=== PATIENT | female | born 1980 | race Caucasian/White ===

== ENCOUNTER 2018-05-19 06:08 | Emergency (ER) | payer BC, SELFPAY ==
[2018-05-19] VITALS (7 sets, daily range): BP systolic 103–114; BP diastolic 62–81; PULSE 88–183; RESP 13–23; TEMP 36.6–36.7; O2SAT 97–99
--- NOTE | 2018-05-19 06:28 | W.ED.GENAD ---
Discharge Plan Disposition Patient Disposition: HOME Condition: Stable Discharge Details Chief Complaint: Palpitatns Clinical Impression: A-fib Primary Care Provider: Patt Carrillo ED Provider: Sam Kennedy Home Meds and New Rx's Prescriptions: No Action No Known Home Meds RF: 0 Discharge Instructions Instructions: Atrial Fibrillation (ED) Additional Instructions: You were in atrial fibrillation when you arrived here. You converted to a normal rhythm with IV fluids Follow up with your primary care provider in 1-2 weeks. Discuss if you should be on remote computer terminal operator blood thinners given your episode of atrial fibrillation if you feel your heart rate is high, have chest pain or difficulty breathing return to the emergency department for reevaluation Medical Decision Making <Jared Ferguson MD - Last Filed: 05/19/18 07:31> 37-year-old female states that she had a fairly abrupt onset of palpitations last night after dinner while at rest. Associated with sensation of being unable to catch her breath. She became lightheaded and nauseated at home, attempted to go to work and then came to the hospital for evaluation. She has not had chest pain or syncope. She denies having sensation like this in the past. No recent travel or prolonged immobilization. She arrives with a temperature of 36, pulse in the 160s, blood pressure 114/81, 98% sat on room air. Differential diagnosis includes thyroid disease, dehydration, myocardial infarction, pulmonary embolism, tachydysrhythmia. Patient placed on a traffic monitor specialist, IV access established, EKG obtained which reveals rapid atrial fibrillation. 2L fluid bolus & 2 g of magnesium ordered, referred for laboratory testing. Patient signed out to Dr Kennedy at change of shift, please see his note. ECG Data Interpretation: Afib, rate 160's, QRS is narrow, no st elevation, non diagnostic ST depression inferior <Sam Kennedy MD - Last Filed: 05/19/18 09:06> Lab Data Lab results reviewed: Yes I reviewed the patient's lab results. ECG Data Attestation: I personally reviewed and interpreted this ECG (s) as follows: Prior ECG tracings: not available for review Interpretation: 1st ekg shows afib at rate of 150, qtc 448, normal axis 2nd ekg showssinus rhythm, rate of 92, qtc 468, normal axis HPI <Jared Ferguson MD - Last Filed: 05/19/18 07:31> General Mode of arrival: ambulatory. Date/Time Provider Initiated Documentation: 05/19/18 06:14. Limitations to Documentation: no limitations. Information obtained by: patient. History of Present Illness 37 year old F presents to the emergency department with the chief complaint of Palpitations and lightheaded, described as moderate, Quality is described as constant, and is localized to the chest. Patient reports no radiation. Patient started experiencing this day(s) and it has been constant. No relieving factors improve symptom(s), No exacerbating factors reported . Patient notes shortness of breath. Patient did receive the following treatments prior to arrival, none Related Data Home Medications Medication Instructions Recorded Confirmed Unknown [No Known Home Meds] 05/19/18 05/19/18 Allergies Allergy/AdvReac Type Severity Reaction Status Date / Time No Known Allergies Allergy Unverified 05/19/18 06:47 General Stated Complaint: Palpitatns DALTON: 2 Review of Systems <Jared Ferguson MD - Last Filed: 05/19/18 07:31> Review of Systems 8 systems reviewed and otherwise neg PFSH <Jared Ferguson MD - Last Filed: 05/19/18 07:31> Social History Smoking/Tobacco Use Status: Former Tobacco Use Exam <Jared Ferguson MD - Last Filed: 05/19/18 07:31> Narrative Exam Narrative: GEN: awake, alert, oriented 3. Pleasant, well groomed, interactive. HEAD: Normocephalic, atraumatic ENT: Mucous membranes moist, oropharynx unremarkable, External ear exam unremarkable EYES: PERRL, EOMI NECK: Full ROM, no THEODORE, no menigismus CHEST/RESP: Nontender, clear to auscultation bilateral, no wheeze/rhonchi/rales CARDIOVASCULAR: Tachycardic, irregularly irregular, no murmur, rub collin. 2+ Rad pulse bilateral ABDOMEN: Soft, nontender, no mass. +Bowel sounds EXT: Full ROM, no edema, no rash Neuro: Grossly normal neurologic exam, conversant, interactive. Psych: Speech fluent, thoughts congruent, affect normal Course <Jared Ferguson MD - Last Filed: 05/19/18 07:31> Vital Signs Temperature 36.6 C 05/19/18 06:21 Pulse 183 H 05/19/18 06:21 Respiratory Rate 13 05/19/18 06:21 Blood Pressure 114/81 05/19/18 06:21 Pulse Oximetry 98 05/19/18 06:21 Temperature 36.6 C 05/19/18 06:21 Temperature Source Temporal Artery Scan 05/19/18 06:21 Pulse 183 H 05/19/18 06:21 Respiratory Rate 13 05/19/18 06:21 Blood Pressure 114/81 05/19/18 06:21 Blood Pressure Position Sitting 05/19/18 06:21 Pulse Oximetry 98 05/19/18 06:21 Oxygen Delivery Method Room Air 05/19/18 06:21 Oxygen Flow Rate 0 05/19/18 06:21 Pain Level 0 05/19/18 06:21 Sign Out <Jared Ferguson MD - Last Filed: 05/19/18 07:31> Sign Out Data: Sign Out Comment: re-evaluate after labs/fluids/mag Last updated by Jared Ferguson MD at 05/19/18 07:39 Post-Handoff Eval: Pt converted to sinus rhythm shortly after getting mag and fluids started. Is HD stable and feels much better and has no symptoms now that she is in sinus rhythm. Her labs show evidence of dehydration otherwise no acute findings. Given she is asymptomatic and is in sinus rhythm, I feel she is safe for d/c. I advised f/u with pcp within 2 weeks and discuss blood thinners, and return precautions given
--- NOTE | 2018-05-19 06:31 | ED.GENADUL_ITS ---
Discharge Plan Disposition Patient Disposition: HOME Condition: Stable Discharge Details Chief Complaint: Palpitatns Clinical Impression: A-fib Primary Care Provider: Patt Carrillo ED Provider: Sam Kennedy Home Meds and New Rx's Prescriptions: No Action No Known Home Meds RF: 0 Discharge Instructions Instructions: Atrial Fibrillation (ED) Additional Instructions: You were in atrial fibrillation when you arrived here. You converted to a normal rhythm with IV fluids Follow up with your primary care provider in 1-2 weeks. Discuss if you should be on intermediate frame tender blood thinners given your episode of atrial fibrillation if you feel your heart rate is high, have chest pain or difficulty breathing return to the emergency department for reevaluation Medical Decision Making <Jared Ferguson MD - Last Filed: 05/19/18 07:31> 37-year-old female states that she had a fairly abrupt onset of palpitations last night after dinner while at rest. Associated with sensation of being unable to catch her breath. She became lightheaded and nauseated at home, attempted to go to work and then came to the hospital for evaluation. She has not had chest pain or syncope. She denies having sensation like this in the past. No recent travel or prolonged immobilization. She arrives with a temperature of 36, pulse in the 160s, blood pressure 114/81, 98% sat on room air. Differential diagnosis includes thyroid disease, dehydration, myocardial infarction, pulmonary embolism, tachydysrhythmia. Patient placed on a cardiac cath lab radiology technologist, IV access established, EKG obtained which reveals rapid atrial fibrillation. 2L fluid bolus & 2 g of magnesium ordered, referred for laboratory testing. Patient signed out to Dr Kennedy at change of shift, please see his note. ECG Data Interpretation: Afib, rate 160's, QRS is narrow, no st elevation, non diagnostic ST depression inferior <aSm Kennedy MD - Last Filed: 05/19/18 09:06> Lab Data Lab results reviewed: Yes I reviewed the patient's lab results. ECG Data Attestation: I personally reviewed and interpreted this ECG (s) as follows: Prior ECG tracings: not available for review Interpretation: 1st ekg shows afib at rate of 150, qtc 448, normal axis 2nd ekg showssinus rhythm, rate of 92, qtc 468, normal axis HPI <Jared Ferguson MD - Last Filed: 05/19/18 07:31> General Mode of arrival: ambulatory . Date/Time Provider Initiated Documentation: 05/19/18 06:14 . Limitations to Documentation: no limitations . Information obtained by: patient . History of Present Illness 37 year old F presents to the emergency department with the chief complaint of Palpitations and lightheaded, described as moderate, Quality is described as constant, and is localized to the chest. Patient reports no radiation. Patient started experiencing this day(s) and it has been constant. No relieving factors improve symptom(s), No exacerbating factors reported . Patient notes shortness of breath. Patient did receive the following treatments prior to arrival, none Related Data Home Medications Medication Instructions Recorded Confirmed Unknown [No Known Home Meds] 05/19/18 05/19/18 Allergies Allergy/AdvReac Type Severity Reaction Status Date / Time No Known Allergies Allergy Unverified 05/19/18 06:47 General Stated Complaint: Palpitatns DALTON: 2 Review of Systems <Jared Ferguson MD - Last Filed: 05/19/18 07:31> Review of Systems 8 systems reviewed and otherwise neg PFSH <Jared Ferguson MD - Last Filed: 05/19/18 07:31> Social History Smoking/Tobacco Use Status: Former Tobacco Use Exam <Jared Ferguson MD - Last Filed: 05/19/18 07:31> Narrative Exam Narrative: GEN: awake, alert, oriented 3. Pleasant, well groomed, interactive. HEAD: Normocephalic, atraumatic ENT: Mucous membranes moist, oropharynx unremarkable, External ear exam unremarkable EYES: PERRL, EOMI NECK: Full ROM, no THEODORE, no menigismus CHEST/RESP: Nontender, clear to auscultation bilateral, no wheeze/rhonchi/rales CARDIOVASCULAR: Tachycardic, irregularly irregular, no murmur, rub collin. 2+ Rad pulse bilateral ABDOMEN: Soft, nontender, no mass. +Bowel sounds EXT: Full ROM, no edema, no rash Neuro: Grossly normal neurologic exam, conversant, interactive. Psych: Speech fluent, thoughts congruent, affect normal Course <Jared Ferguson MD - Last Filed: 05/19/18 07:31> Vital Signs Temperature 36.6 C 05/19/18 06:21 Pulse 183 H 05/19/18 06:21 Respiratory Rate 13 05/19/18 06:21 Blood Pressure 114/81 05/19/18 06:21 Pulse Oximetry 98 05/19/18 06:21 Temperature 36.6 C 05/19/18 06:21 Temperature Source Temporal Artery Scan 05/19/18 06:21 Pulse 183 H 05/19/18 06:21 Respiratory Rate 13 05/19/18 06:21 Blood Pressure 114/81 05/19/18 06:21 Blood Pressure Position Sitting 05/19/18 06:21 Pulse Oximetry 98 05/19/18 06:21 Oxygen Delivery Method Room Air 05/19/18 06:21 Oxygen Flow Rate 0 05/19/18 06:21 Pain Level 0 05/19/18 06:21 Sign Out <Jared Ferguson MD - Last Filed: 05/19/18 07:31> Sign Out Data: Sign Out Comment: re-evaluate after labs/fluids/mag Last updated by Jared Ferguson MD at 05/19/18 07:39 Post-Handoff Eval: Pt converted to sinus rhythm shortly after getting mag and fluids started. Is HD stable and feels much better and has no symptoms now that she is in sinus rhythm. Her labs show evidence of dehydration otherwise no acute findings. Given she is asymptomatic and is in sinus rhythm, I feel she is safe for d/c. I advised f/u with pcp within 2 weeks and discuss blood thinners, and return precautions given
--- NOTE | 2018-05-19 07:44 | NUR.NOTE ---
pt has been stuck 6 times by shift commander and 4 by day shift without getting an iv and lab came an stuck pt for blood waiting on line for pt Nursing Note:
[2018-05-19 08:00] LABS: ALT 19 U/L (12-78); AST 15 U/L (15-37); Albumin 3.7 g/dL (3.4-5.0); Alkaline Phosphatase 60 U/L (46-116); BUN 16 mg/dL (7-18); Bilirubin, Total 0.6 mg/dL (0.2-1.0); CREATININE 1.09 mg/dL (0.55-1.02); Chloride 106 mmol/L (98-107); Estimated GFR 56.48 (mL/min/1.73m2); Glucose 93 mg/dL (70-100); Magnesium 2.2 mg/dL (1.8-2.4); Potassium 3.6 mmol/L (3.5-5.1); Sodium 143 mmol/L (136-145); Total Protein 7.4 g/dL (6.4-8.2)
[2018-05-19 08:02] LABS: Troponin I < 0.02 ng/mL (0.00-0.06)
[2018-05-19] MEDS: MAGNESIUM SULFATE 2 GM/50 ML BAG IVPB (08:03)
[2018-05-19] MEDS: Normal Saline 1,000 ML 1000 ML IV (08:04)
[2018-05-19] MEDS: Normal Saline Flush 10 ML SYR IVP (08:05)
[2018-05-19 08:31] LABS: PTT Activated 22.4 sec (21.0-31.4); Prothrombin Time 10.1 sec (9.3-11.0)
[2018-05-19 08:38] LABS: Bilirubin Negative (Negative); Blood Trace-intact (Negative); Clarity Clear; Glucose Negative (Negative); Ketones Negative (Negative); Leukocyte Esterase Negative (Negative); Nitrite Negative (Negative); Urobilinogen 0.2 EU/dL (Up TO 0.2)
[2018-05-19 08:50] LABS: Bacteria Rare HPF (Negative); C & S Indicated? No; Casts Negative LPF (Negative); Crystals Negative HPF (Negative); Epithelial Cells Negative HPF (Negative); Mucus Negative (Negative); Other Cells Negative (Negative); RBC 0-2 (0-2); WBC Negative HPF (0-5)
[2018-05-19 08:51] LABS: D-Dimer 233 ng/mlFEU (<500)
[2018-05-19 09:15] LABS: Abs Immature Grans 0.01 k/cumm (0.0-0.09); Absolute Basophil Count 0.03 k/cumm (0.0-0.2); Absolute Eosinophil Count 0.05 k/cumm (0.0-0.7); Absolute Lymphocyte Count 1.73 k/cumm (1.2-3.4); Absolute Monocyte Count 0.59 k/cumm (0.11-0.7); Absolute Neutrophil Count 5.82 k/cumm (1.2-6.7); Basophils % 0.4; Eosinophils % 0.6; HCT 48.7 % (36.0-46.0); HGB 16.2 g/dL (12.0-15.5); Immature Grans % 0.1; Mean Corp. HGB Concentration 33.3 g/dL (32.0-36.0); Mean Corpuscular Hemoglobin 25.1 pg (27.0-33.0); Mean Corpuscular Volume 75.5 fL (80-95); Mean Platelet Volume 11.7 fL (8.0-11.0); Monocytes % 7.2; Neutrophils % 70.7; Platelet Count 179 x1000/uL (130-400); RBC 6.45 m/cumm (4.00-5.20); RBC Distribution Width 13.9 % (11.7-14.6); White Blood Cell Count 8.23 k/cumm (4.4-10.8)
--- NOTE | 2018-05-19 09:50 | NUR.NOTE ---
pt stated that she is painfree and PMS X 4Nursing Note:
== END 2018-05-19 09:50 | disposition home or self-care (01) ==
PROVIDERS: Emergency Medicine; Emergency Provider Emergency Medicine; PCP Nurse Practitioner Family
DX: I48.91 Unspecified atrial fibrillation (principal); Z87.891 Personal history of nicotine dependence
CPT/HCPCS: 36415; 80053; 93005; 96361; 96365; 99284; 81003; 81015; 83735; 84443; 84484; 85025; 85379; 85610; 85730; 93010

== ENCOUNTER 2018-06-02 02:10 | Outpatient (CLI) | payer BC, SELFPAY | END 2018-06-02 02:30 | PROVIDERS: PCP Nurse Practitioner Family; Visit Provider Nurse Practitioner Family | DX: I48.0 Paroxysmal atrial fibrillation (principal) ==

== ENCOUNTER 2018-06-12 01:54 | Outpatient (CLI) | payer BC, SELFPAY | END 2018-06-12 02:14 | PROVIDERS: PCP Nurse Practitioner Family; Visit Provider Nurse Practitioner Family | DX: I48.0 Paroxysmal atrial fibrillation (principal); I49.3 Ventricular premature depolarization; R00.1 Bradycardia, unspecified | CPT/HCPCS: 93225 ==

== ENCOUNTER 2018-06-18 11:23 | Outpatient (CLI) | payer BC, SELFPAY ==
--- NOTE | 2018-06-22 12:00 | HOLTER_ITS ---
HOLTER MONITOR DATE OF DICTATION June 22, 2018 INTERPRETATION Baseline rhythm sinus. Rare single PAC. No atrial fibrillation or SVT. Occasionally single PVC, No VT. Nocturnal heart rates as low as 50-55 beats per minute, sinus bradycardia. SYMPTOMS Skip noted once during sinus arrhythmia 80 beats per minute. Skip noted once during sinus rhythm 85 beats per minute. Flutter noted twice during sinus rhythm single PVC, 71, 77 beats per minute. Average heart rate 85 beats per minute. Sam Collins M.D. PHIL/madiha T - 06/22/2018
== END 2018-06-18 11:43 ==
PROVIDERS: PCP Nurse Practitioner Family; Visit Provider Nurse Practitioner Family
DX: R00.1 Bradycardia, unspecified (principal); I49.3 Ventricular premature depolarization; I48.0 Paroxysmal atrial fibrillation
CPT/HCPCS: 93226

== ENCOUNTER 2018-07-21 09:09 | Outpatient (REF) | payer BC, SELFPAY ==
[2018-07-21 19:24] LABS: Cholesterol 185 mg/dL (50-200); Glucose 93 mg/dL (70-100); HDL Cholesterol 56 mg/dL (40-60); LDL CHOLESTEROL 116 mg/dL (<100); Triglyceride 46 mg/dL (30-150)
== END 2018-07-21 09:29 ==
LOC: NCHCN 09:09
PROVIDERS: PCP Nurse Practitioner Family; Visit Provider Nurse Practitioner Family
DX: Z00.00 Encounter for general adult medical examination without abnormal findings (principal); I48.0 Paroxysmal atrial fibrillation; F32.9 Major depressive disorder, single episode, unspecified; F51.04 Psychophysiologic insomnia
CPT/HCPCS: 80061; 82947; 83721

== ENCOUNTER 2019-01-22 06:36 | Emergency (ER) | payer BC, SELFPAY ==
[2019-01-22] VITALS (11 sets, daily range): BP systolic 95–109; BP diastolic 57–78; PULSE 78–118; RESP 13–33; TEMP 36.6–37.1; O2SAT 93–100
--- NOTE | 2019-01-22 06:58 | ED.GENADUL_ITS ---
Discharge Plan Disposition Patient Disposition: HOME Condition: Good Discharge Details Chief Complaint: Palpitatns Clinical Impression: Heart palpitations Primary Care Provider: Patt Carrillo ED Provider: Robert Lorenzo Home Meds and New Rx's Prescriptions: No Action zolpidem [Ambien] 10 mg Tablet 10 mg PO PRN PRNRF: 0 Discharge Instructions Instructions: Palpitations (ED) Additional Instructions: You have had palpitations, however at this time we see no signs of atrial fibrillation. We will continue to monitor your heart over the next 48 hours with a Holter monitor. You may require prolonged monitoring if the Holter does not show any significant abnormalities. We will be scheduling cardiology follow-up for you, you will get a call with the appointment. Please follow-up with your primary care provider at the appointment that we have scheduled for you on Friday the at 10 AM with [facility]. Please drink plenty fluids throughout the day. Avoid any alcohol or caffeine. If you notice any worsening of your symptoms, or any new symptoms such as vomiting, diarrhea, fever, chills, shortness of breath, chest pain, palpitations, numbness, weakness, or fainting , please return immediately to the emergency department for reevaluation. Please follow up with your primary care provider as soon as possible for reassessment and reevaluation. As always, it was a pleasure participating in your medical care today. Stand Alone Forms: Work Release Discharge Data Discharge Date/Time-TO BE ENTERED AT DEPARTURE: 01/22/19 09:51 Medical Decision Making <José Orozco MD - Last Filed: 01/25/19 23:09> Patient is in sinus rhythm here. Heart rate ranging from 90s up into the 1 teens. Blood pressure little soft but she reports normal blood pressure is systolic 90s to 100s. She still feels lightheaded but is no longer feeling short of breath and is not having palpitations like she did. We will give a liter of fluid and leave her on the monitor for now. We will check laboratory studies including TSH. Doubt PE as a source of symptoms. She has no pleuritic pain. She has no calf pain or tenderness. She has no risk factors for PE. Will obtain d-dimer. Patient laboratory studies are significant for low bicarb and anion gap. Again patient denies illness. She is not fasting. She is not on a keto diet. No great explanation for abnormality. Potassium and magnesium are fine. Calcium just a little low. TSH is normal. D-dimer still pending. Will hang a second bag of fluid. Case discussed with my colleague, Dr. Lorenzo who will take over care. Will likely repeat her BMP after the second liter of fluid. She did not receive an echo after her first episode of documented A. fib. Should probably obtain that at some point as outpatient to evaluate valvular structure. Consider repeat Holter. Medical Records Medical records reviewed: Yes I reviewed the patient's medical records. Lab Data Lab results reviewed: Yes I reviewed the patient's lab results. ECG Data Attestation: I personally reviewed and interpreted this ECG (s) as follows: Interpretation: Sinus rhythm with 1 PAC. Normal intervals and axis. Normal ST segments. <Robert Lorenzo, DO - Last Filed: 01/22/19 09:41> Case was signed out to be my my colleague Dr. Orozco pending d-dimer and reassessment. On reassessment patient has been doing very well. Aside for the initial episode of very mild tachycardia 118 on her first assessment, she has been in normal sinus with a rate of 70s during the prolonged observation stay greater than 2 hours. She has no symptoms of palpitations or chest pain at this time whatsoever. Calcium was given to the patient to correct her very minimal hypo-Benjy C. Osiris. Anion gap is resolved after fluids. D-dimer test was negative. Patient continues to feel very well. 48 hr Holter monitor has been applied. We have scheduled an outpatient follow-up appointment with her PCP on Friday the of this month at 10 AM. This is required to get the prior off for the echocardiogram. We will schedule cardiology follow-up. Currently she continues to show no evidence of A. fib, and so at this time I do not see an indication for anticoagulation as we have no proof of current atrial fibrillation as a cause of her symptomatology at this point. We have had a long discussion regarding critical findings for which to immediately return, the importance of follow-up. I have extensively reviewed the treatment plan and discharge instructions with the patient. I have addressed all patient concerns at this time. The patient was made aware of what symptoms to monitor for that would warrant a return to the emergency department. Discussed the plan with the patient, they demonstrate verbal understanding and agreement with our assessment and plan at this time. HPI <José Orozco MD - Last Filed: 01/25/19 23:09> General Mode of arrival: ambulatory . Date/Time Provider Initiated Documentation: 01/22/19 06:47 . Limitations to Documentation: no limitations . Information obtained by: patient, RN notes reviewed and old records reviewed . HPI Narrative: Patient presents to ED this morning with complaints of palpitations, shortness of breath, lightheadedness all night. She had previous similar event and on arrival to ED was found to be in rapid A. fib. She converted in the department with IV fluids. She subsequently has had a Holter monitor and has followed up with primary care. No A. fib was seen on Holter monitor. Patient has not been started on anything for A. fib. She states typically she may have short periods of palpitations. Last night she has pretty much felt like she is been in A. fib with palpitations, shortness of breath and lightheadedness all night. She reports heart rates as high as 150 at home. Here she feels the palpitations and shortness of breath are better. She still feels lightheaded. She denies being ill. There has been no fevers or chills. There is no cough. There is no chest pain or pressure. There is no leg pain or leg swelling. She denies drug use. Related Data Home Medications Medication Instructions Recorded Confirmed zolpidem [Ambien] 10 mg PO PRN PRN 01/22/19 01/22/19 Allergies Allergy/AdvReac Type Severity Reaction Status Date / Time No Known Allergies Allergy Unverified 01/22/19 06:43 General Stated Complaint: Palpitatns DALTON: 2 Review of Systems <José Orozco MD - Last Filed: 01/25/19 23:09> Review of Systems Narrative: 02/15 Review of Systems completed and is negative except as stated above in HPI (Systems reviewed: Const, Eyes, ENT, Resp, CV, GI, , MSK, Skin, Neuro) PFSH <José Orozco MD - Last Filed: 01/25/19 23:09> Medical History Paroxysmal atrial fibrillation (Acute) Social History Smoking/Tobacco Use Status: Former Tobacco Use Drug use: Never Substance use type: does not use Do you feel safe at home: Yes Do you feel safe in your relationship?: Yes Exam <José Orozco MD - Last Filed: 01/25/19 23:09> Narrative Exam Narrative: Vitals: Afebrile. A little tachycardic but vitals otherwise normal. Room air pulse oximetry normal at 100%. Const: WDWN female in NAD. HEENT: NC/AT. Normal facial exam. Eyes: Normal conjunctiva and sclera. Neck: Supple. Trachea midline. No thyromegaly. Lungs: Normal respiratory effort. Lungs are clear. Cor: RRR without murmur/gallop. Good radial pulses. GI: Soft. NT/ND. No guarding or rebound. Neuro: A+O x 3. CN grossly in tact. Good strength and no focal deficit. Ext: No C/C/E. No calf tenderness. Skin: Warm and dry without rash. Course <José Orozco MD - Last Filed: 01/25/19 23:09> Vital Signs Vital signs: Vital Signs Temperature 97.9 F 01/22/19 06:38 Pulse 118 H 01/22/19 06:38 Respiratory Rate 21 01/22/19 06:38 Blood Pressure 109/64 01/22/19 06:38 Pulse Oximetry 100 01/22/19 06:38 Temperature 97.9 F 01/22/19 06:38 Temperature Source Skin 01/22/19 06:38 Pulse 118 H 01/22/19 06:38 Respiratory Rate 21 01/22/19 06:38 Respiratory Effort Non-Labored 01/22/19 06:48 Blood Pressure 109/64 01/22/19 06:38 Blood Pressure Position Sitting 01/22/19 06:38 Pulse Oximetry 100 01/22/19 06:38 Oxygen Delivery Method Room Air 01/22/19 06:38 Oxygen Flow Rate 0 01/22/19 06:38 Pain Level 0 01/22/19 06:45 Sign Out <José Orozco MD - Last Filed: 01/25/19 23:09> Sign Out Data: Sign Out Comment: follow up on pending labs; re-eval. Last updated by José Orozco MD at 01/22/19 07:59
[2019-01-22] MEDS: Normal Saline 1,000 ML 1000 ML IV ×2 (07:00→07:49)
[2019-01-22 07:20] LABS: Abs Immature Grans 0.02 k/cumm (0.0-0.09); Absolute Basophil Count 0.04 k/cumm (0.0-0.2); Absolute Lymphocyte Count 1.83 k/cumm (1.2-3.4); Absolute Monocyte Count 0.42 k/cumm (0.11-0.7); Absolute Neutrophil Count 3.72 k/cumm (1.2-6.7); Basophils % 0.7; Eosinophils % 1.6; HCT 44.4 % (36.0-46.0); Immature Grans % 0.3; Lymphocytes % 29.9; Mean Corp. HGB Concentration 33.8 g/dL (32.0-36.0); Mean Corpuscular Hemoglobin 25.3 pg (27.0-33.0); Monocytes % 6.9; Neutrophils % 60.6; Platelet Count 184 x1000/uL (130-400); RBC 5.92 m/cumm (4.00-5.20); RBC Distribution Width 13.9 % (11.7-14.6); White Blood Cell Count 6.13 k/cumm (4.4-10.8)
[2019-01-22 07:37] LABS: Anion Gap 14.2 mmol/L (3-11); BUN 13 mg/dL (7-18); CO2 19.8 mmol/L (21.0-32.0); CREATININE 0.92 mg/dL (0.55-1.02); Calcium 8.4 mg/dL (8.5-10.1); Chloride 106 mmol/L (98-107); Glucose 128 mg/dL (70-100); Magnesium 2.1 mg/dL (1.8-2.4); Potassium 3.5 mmol/L (3.5-5.1); Sodium 140 mmol/L (136-145); TSH (W/Ref FT4) 3.03 uIU/mL (0.36-3.74)
[2019-01-22 07:49] LABS: HCG Qual (Serum) Negative
[2019-01-22 08:07] LABS: D-Dimer 243 ng/mlFEU (<500)
--- NOTE | 2019-01-22 09:00 | NUR.NOTE ---
Nursing Note: Referral faxed to [facility]- cardiology and appointment made to [facility] for Prior Auth Echo.
[2019-01-22 09:15] LABS: ALT 9 U/L (14-59); AST 10 U/L (15-37); Albumin 2.8 g/dL (3.4-5.0); Alkaline Phosphatase 49 U/L (46-116); BUN 13 mg/dL (7-18); Bilirubin, Total 0.2 mg/dL (0.2-1.0); CREATININE 0.95 mg/dL (0.55-1.02); Calcium 8.1 mg/dL (8.5-10.1); Chloride 111 mmol/L (98-107); Glucose 103 mg/dL (70-100); Potassium 3.7 mmol/L (3.5-5.1); Sodium 141 mmol/L (136-145); Total Protein 5.8 g/dL (6.4-8.2)
== END 2019-01-22 09:51 | disposition home or self-care (01) ==
PROVIDERS: Emergency Medicine; Emergency Provider Student in an Organized Health Care Education/Training Program; PCP Nurse Practitioner Family
DX: R00.2 Palpitations (principal); I48.0 Paroxysmal atrial fibrillation
CPT/HCPCS: 36415; 80048; 80053; 93005; 96361; 96365; 99284; 83735; 84443; 84703; 85025; 85379; 93010; 93225; J0610

== ENCOUNTER 2019-01-25 15:40 | Outpatient (CLI) | payer BC, SELFPAY ==
--- NOTE | 2019-01-26 12:21 | HOLTER_ITS ---
DATE OF DICTATION: January 26, 2019 STUDY INDICATION: Palpitations. REQUESTING PROVIDER: Not available. FINDINGS: The patient was monitored for 2 days. Baseline sinus rhythm. Average heart rate 82 bpm, range 55 to 129 bpm. Rare ectopy. 0.2% PVC's, no VT. 0.2% PAC's. One 3-beat atrial run, maximum heart rate 168 bpm. No pauses greater than 3 seconds. No high-degree heart block. No patient events. FINAL INTERPRETATION: Minor, asymptomatic arrhythmias.
== END 2019-01-25 16:00 ==
PROVIDERS: PCP Nurse Practitioner Family; Visit Provider Nurse Practitioner Family
DX: R00.2 Palpitations (principal); I49.3 Ventricular premature depolarization; I49.1 Atrial premature depolarization
CPT/HCPCS: 93226

== ENCOUNTER 2019-04-05 00:53 | Outpatient (CLI) | payer BC, SELFPAY ==
--- NOTE | 2019-04-05 14:02 | DI.US_ITS ---
APPROVED REPORT EXAM: Comprehensive 2D, Doppler, and color-flow Echocardiogram Patient Location: Out-Patient Manager Residential: Kaela Lobo [facility] ([place]) Rhythm: NSR Indications: paroxysmal atrial fibrillation i48.0 Conclusion Left Ventricle : The left ventricle is normal size. There is normal left ventricular wall thickness. The left ventricular systolic function is normal. The left ventricular ejection fraction is within th e normal range. There is normal LV segmental wall motion. The left ventricular diastolic function is normal. LVEF is estimated to be 55-60%. Right Ventricle : The right ventricle is normal size. The right ventricular systolic function is norm al. Atria : The left atrium size is normal. The right atrium size is normal. Aortic Valve : Aortic valve is probably trileaflet, with mild sclerosis. Trivial to mild aortic regur gitation. There is no aortic valvular stenosis. Mitral Valve : The mitral is very mildly thickened. Trivial to mild mitral regurgitation. No evidence of mitral valve stenosis. Tricuspid Valve : Tricuspid valve is not well visualized. Trivial to mild tricuspid regurgitation. Great Vessels : The IVC is dilated but collapses >50% with inspiration. The estimated RVSP is 30-38 mmHg. There is no prior echocardiogram available for comparison. Wall motion Left Ventricle The left ventricle is normal size. The left ventricular systolic function is normal. The left ventric ular ejection fraction is within the normal range. There is normal left ventricular wall thickness. T here is normal LV segmental wall motion. The left ventricular diastolic function is normal. LVEF is e stimated to be 55-60%. Right Ventricle The right ventricle is normal size. The right ventricular systolic function is normal. Atria The left atrium size is normal. The right atrium size is normal. Aortic Valve Aortic valve is probably trileaflet, with mild sclerosis. There is no aortic valvular stenosis. Trivi al to mild aortic regurgitation. Mitral Valve The mitral is very mildly thickened. No evidence of mitral valve stenosis. Trivial to mild mitral reg urgitation. Tricuspid Valve Tricuspid valve is not well visualized. Trivial to mild tricuspid regurgitation. Great Vessels The aortic root is normal in size. The IVC is dilated but collapses >50% with inspiration. The estima kris RVSP is 30-38 mmHg. Pericardium There is no pericardial effusion. 2D Dimensions IVSd 0.85 cm F: 0.6-1.0 LV EDV A2C 58.40 mL PWd 0.75 cm F: 0.6 - 1.0 LV EDV A4C 84.00 mL LVDd 5.05 cm F: 3.8 - 5.2 LA Volume Index A2C 17.99 mL/m2 LVDs 3.70 cm F: 2.2 - 3.5 LA Volume Index A4C 15.08 mL/m2 Aortic Root 3.15 cm F: 2.7 - 3.3 LA Volume Index Biplane 16.85 mL/m2 RA Area A4C 10.36 cm2 LA Area A4C 13.48 cm2 LVOT 2.00 cm (M/F) 1.5-2.5 LA Area A2C 15.07 cm2 LVEF (Teich) 52.54 % EF AP4 57.26 % LVEF (Mendiola's) 58.69 % F: 54 - 74 EF AP2 61.47 % LV Volume 51.19 mL F: 46 - 106 EF BP 58.69 % LV Volume Index 23.16 mL/m2 F: 29 - 61 FS 27.10 % LV Diastology E/A Ratio 1.1 MED E' 0.10 (>0.07 m/s) LV E/e MED 9.25 (<14) LAT E' 0.18 (>0.1 m/s) LV E/e LAT 5.15 (<14) Aortic Valve LVOT Area 3.24 cm2 LVOT Peak Juan Antonio. 1.30 m/s LVOT Mean Juan Antonio. 1.01 m/s LVOT Peak Gr. 6.90 mmHg CODY Vmax Index 0.92 cm2/m2 LVOT Mean Gr. 4.50 mmHg LVOT VTI 0.25 m CODY Mean Juan Antonio. Index 0.91 cm2/m2 AoV Peak Juan Antonio. 2.09 (0.5-1.3 m/s) AoV Mean Juan Antonio. 1.62 m/s AO Peak GR. 17.40 mmHg AO Mean GR. 11.10 (<5 mmHg) VTI Ratio 0.56 CODY (VTI) 1.87 (2.5-4.5 cm2) CODY (VTI) Index 0.84 cm/m2 Mitral Valve MV E Max Juan Antonio. 0.95 (0.4-1.3 m/s) MV A Velocity 0.90 (0.4-1.3 m/s) E/A Ratio 1.03 MV Decel. Time 178.05 (160-240 msec) MV PHT 51.64 msec MVA PHT 4.25 cm2 Pulmonary Valve PV Peak Velocity 0.95 (0.5-1.5 m/s) Tricuspid Valve TR P. Velocity 2.74 m/s TV Regurg Vmax 2.74 m/s RAP Estimate 8.00 mmHg RVSP 38.00 mmHg TR P. Gradient 29.95 mmHg
== END 2019-04-05 01:13 ==
PROVIDERS: PCP Nurse Practitioner Family; Visit Provider Nurse Practitioner Family
DX: I48.0 Paroxysmal atrial fibrillation (principal); I34.8 Other nonrheumatic mitral valve disorders; R00.2 Palpitations
CPT/HCPCS: 93306

== ENCOUNTER 2019-05-17 08:54 | Outpatient (CLI) | payer BC, SELFPAY | END 2019-05-17 09:14 | PROVIDERS: PCP Nurse Practitioner Family; Visit Provider Internal Medicine Cardiovascular Disease | DX: I48.0 Paroxysmal atrial fibrillation (principal); R00.2 Palpitations | CPT/HCPCS: 93005; 93010 ==

== ENCOUNTER 2019-11-29 15:47 | Outpatient (REF) | payer BC, SELFPAY ==
[2019-12-02 12:59] LABS: SARS-CoV-2 RNA Undetected (Undetected); SARS-CoV-2 Specimen Source Nasopharynx
== END 2019-11-29 16:07 ==
LOC: NCHCN 15:47
PROVIDERS: PCP Nurse Practitioner Family; Visit Provider Nurse Practitioner Family
DX: Z11.59 Encounter for screening for other viral diseases (principal)
CPT/HCPCS: U0003

== ENCOUNTER 2020-03-09 09:42 | Emergency (ER) | payer BC, SELFPAY ==
[2020-03-09] VITALS (40 sets, daily range): BP systolic 109–125; BP diastolic 63–91; PULSE 65–99; RESP 9–30; TEMP 36.5; O2SAT 97–100
--- NOTE | 2020-03-09 09:30 | RT.EKG_ITS ---
APPROVED REPORT Exam: Resting ECG Patient Location: E HR:80 bpm ECG Measurements Heart Rate 80 AXIS NH 139 P 33 QRSd 96 QRS 90 QT 364 T 33 QTc 421 Conclusion Sinus rhythm...normal P axis, V-rate 60- 99
--- NOTE | 2020-03-09 09:45 | DI.CT_ITS ---
EXAM: CT CHEST PE CTA CLINICAL HISTORY: chest pain since 5 am. TECHNIQUE: Imaging Protocol: Axial CT angiography was performed with multi-slice acquisition and mu lti-planar and/or 3D reconstructions. CONTRAST MATERIAL: Intravenous: Omnipaque 350 Contrast volume:100 mL COMPARISON: No exams were available for comparison FINDINGS: Pulmonary Arteries: No evidence of filling defect to suggest pulmonary emboli. Tracheobronchial tree: Patent where visualized. Mediastinum and Nichol: No dominant adenopathy or fluid collection. Pulmonary parenchyma: No focal consolidation or mass. Atelectasis is present. No architectural dist ortion. Pleura: No effusion or pneumothorax. Heart: The heart is not dilated. No coronary artery calcifications are seen. No pericardial effusion. Aorta: Thoracic aorta non-dilated. No dissection. Upper abdomen: Unremarkable. Bones: Normal. Soft tissues: Unremarkable. IMPRESSION: No evidence of pulmonary embolism, thoracic aortic dissection or aneurysm. Findings were discussed with the emergency department on the date of the examination. RADIATION DOSE DELIVERED: 453.07mGy.cm Total DLP DATA REPOSITORY: All CT scans at this facility are submitted to the National Radiology Data Registry (NRDR) Dose Index Registry (DIR) with the [employer] (ACR). RADIATION OPTIMIZATION: All CT scans at this facility use at least one of these dose optimization te chniques: automated exposure control; mA and/or kV adjustment per patient size (includes targeted exa ms where dose is matched to clinical indication); or iterative reconstruction.
[2020-03-09 10:15] LABS: Abs Immature Grans 0.02 10^3/uL (0.0-0.06); Absolute Basophil Count 0.05 10^3/uL (0.0-0.2); Absolute Eosinophil Count 0.13 10^3/uL (0.0-0.7); Absolute Lymphocyte Count 2.03 10^3/uL (1.2-3.4); Absolute Monocyte Count 0.45 10^3/uL (0.1-0.8); Absolute Neutrophil Count 5.15 10^3/uL (1.2-6.7); Basophils % 0.6; Eosinophils % 1.7; HCT 44.4 % (36.0-46.0); HGB 14.3 g/dL (11.2-15.7); Immature Grans % 0.3; Lymphocytes % 25.9; MCH 25.4 pg (27.0-33.0); MCHC 32.2 % (32.0-36.0); MCV 78.7 fL (80-95); MPV 11.3 fL (8.0-11.0); Monocytes % 5.7; Neutrophils % 65.8; Nucleated RBC 0 %; Platelet Count 195 10^3/uL (130-400); RBC 5.64 10^6/uL (3.93-5.22); RDW 13.2 % (11.7-14.6); RDW-SD 37.5 fL; WBC 7.83 10^3/uL (4.4-10.8)
[2020-03-09] MEDS: LORazepam 2 MG/ML VIAL 0.5 MG IVP (10:22)
[2020-03-09 10:32] LABS: INR 1.1 (0.9-1.1); PTT Activated 22.5 sec (21.0-27.5); Prothrombin Time 10.9 sec (9.3-11.0)
[2020-03-09 10:34] LABS: ALT 15 U/L (14-59); AST 22 U/L (15-37); Alkaline Phosphatase 50 U/L (46-116); Anion Gap 11.4 mmol/L (3-11); BUN 10 mg/dL (7-18); Bilirubin, Total 0.6 mg/dL (0.2-1.0); CO2 25.6 mmol/L (21.0-32.0); Calcium 9.1 mg/dL (8.5-10.1); Chloride 104 mmol/L (98-107); Glucose 87 mg/dL (74-106); Magnesium 2.2 mg/dL (1.8-2.4); Potassium 3.9 mmol/L (3.5-5.1); Sodium 141 mmol/L (136-145); Total Protein 7.6 g/dL (6.4-8.2)
[2020-03-09 10:41] LABS: Troponin I < 0.05 ng/mL (<0.06)
[2020-03-09 10:42] LABS: TSH (W/Ref FT4) 3.08 uIU/mL (0.36-3.74)
[2020-03-09] MEDS: Omnipaque 350 MG/ML 100 ML BTL IJ (11:45)
[2020-03-09] MEDS: Normal Saline Flush 10 ML SYR IVP (11:46)
[2020-03-09] MEDS: Normal Saline - Diluent 50 ML VIAL IV (11:46)
--- NOTE | 2020-03-09 11:57 | NUR.NOTE ---
pt awake and alert. back from ct. chest pain free at this time. :
[2020-03-09] MEDS: diazePAM 5 MG TAB PO (12:44)
--- NOTE | 2020-03-09 13:00 | ED.GENADUL_ITS ---
Discharge Plan Disposition Patient Disposition: HOME Condition: Stable Discharge Details Clinical Impression: Paroxysmal atrial fibrillation, Chest discomfort, Anxiety Primary Care Provider: Patt Carrillo ED Provider: Humberto Muñoz Home Meds and New Rx's Prescriptions: Continued metoprolol tartrate 25 mg tablet 12.5 mg PO BID Qty: 90 RF: 5 zolpidem [Ambien] 10 mg Tablet 10 mg PO PRN PRNRF: 0 Discharge Instructions Instructions: A-fib (Atrial Fibrillation) (ED), Anxiety (ED) Additional Instructions: Please follow-up with your primary care physician and your sterilisation technician. Call today to schedule timely follow-up. Return to the emergency department immediately for any worsening or new concerning symptoms. Stand Alone Forms: Work Release Referrals: Mao Adkins MD [ CONSULTING PHYSICIAN] - Patt Carrillo NP [Primary Care Provider] - Discharge Data Discharge Date/Time-TO BE ENTERED AT DEPARTURE: 03/09/20 14:35 Medical Decision Making 1300??39-year-old female with history of paroxysmal atrial fibrillation which she experiences intermittently, here with palpitations and chest discomfort that started around 5 AM and has persisted. Patient is hemodynamically stable. Lungs are clear to auscultation and she has no respiratory distress. Patient is quite anxious. I interpreted residential monitor in the room and patient in sinus rhythm. Screening ECG was reviewed and interpreted by me: Please see report, nondiagnostic, sinus rhythm 80 bpm. I think ACS is unlikely given no significant risk factors. ECG nondiagnostic. I will check troponin and delta troponin out of an abundance of caution. Considered pulmonary embolism. CT of the chest was reviewed and interpreted by Dr. Irwin, radiology who notes negative with no acute or notable chronic findings. Patient was given Ativan 0.5 mg IV and reassessed and notes significant improvement in her anxiety and discomfort. Suspect anxiety as etiology. I will give her a longer acting oral benzodiazepine, continue to monitor and plan on repeating troponin and ECG. 1420 --patient reassessed and symptoms resolved. Repeat troponin negative. Repeat ECG nondiagnostic. Plan for discharge with outpatient follow-up with her sterilisation technician for her atrial fibrillation and PCP for her anxiety. Disposition decision was made weighing the risks and benefits of hospitalization versus outpatient treatment, the risk for further decompensation, and the patient's wishes. The patient was stable and requested discharge. Prior to discharge, my usual and customary return precautions were reviewed with the patient - this included follow-up instructions and reason to return to the emergency department if condition worsens, does not improve as expected, or other new concerns arise. HPI General Mode of arrival: ambulatory . Date/Time Provider Initiated Documentation: 03/09/20 09:52 . Limitations to Documentation: no limitations . Information obtained by: patient . HPI Narrative: 39-year-old female presents with chief complaint of chest discomfort. Patient notes chest discomfort started this morning around 5 AM at work. Discomfort feels like a constant pressure over her sternum that is worse when she is moving around. Patient notes associated intermittent palpitations. She does have a history of atrial fibrillation and has intermittent brief episodes of palpitations. She has been taking metoprolol as prescribed. She has associated sensation of feeling like her breathing is heavy. No associated leg pain or swelling. No associated cough or fever. Patient does note dizziness and also significant anxiety. She has significant life stressors both at work and home. She does feel safe at home and denies abuse. Patient denies history of hypertension, hyperlipidemia, diabetes, smoking or family history of heart disease. Related Data Home Medications Medication Instructions Recorded Confirmed zolpidem [Ambien] 10 mg PO PRN PRN 01/22/19 03/09/20 metoprolol tartrate 25 mg tablet 12.5 mg PO BID #90 tab 05/17/19 03/09/20 Previous Rx's Medication Instructions Recorded metoprolol tartrate 25 mg tablet 12.5 mg PO BID #90 tab 05/17/19 Allergies Allergy/AdvReac Type Severity Reaction Status Date / Time No Known Allergies Allergy Unverified 03/09/20 09:51 General Stated Complaint: Chest Pain DALTON: 2 Review of Systems All systems reviewed & are unremarkable except as noted in HPI and below Constitutional Constitutional: Denies fever(s) Cardiovascular Cardiovascular: Reports as per HPI Respiratory Respiratory: Reports as per HPI Psychiatric Psychiatric: Reports anxiety [facility] Medical History (Updated 03/09/20 @ 14:22 by Humberto Muñoz MD) Paroxysmal atrial fibrillation Family History Father Diabetes Social History Smoking/Tobacco Use Status: Former Tobacco Use Quit Date: 05/05/08 Tobacco: How many years used: 10 Smoking risk assessment performed?: Yes Alcohol Intake: current Alcohol Intake frequency: a few times a month Alcohol type: beer, wine and hard liquor Drug use: Occasionally Substance use type: marijuana What type of physical activity do you participate in: none Do you feel safe at home: Yes Do you feel safe in your relationship?: Yes Exam Const General: cooperative and well developed Orientation: alert and awake HENMT Mouth: moist mucous membranes Eyes Conjunctivae: normal conjunctivae Sclera: normal sclerae Neck Neck: trachea midline and supple Resp Auscultation: clear to auscultation bilaterally, no rales, no rhonchi and no wheezes Cardio Jugular venous pressure: no JVD Rate: regular rate and not tachycardic Rhythm: regular rhythm Heart Sounds: S1 normal, S2 normal, no click, no gallops, no murmurs and no rubs GI Palpation: soft, not firm, no guarding, no masses, not rigid and nontender Skin General skin exam: no rashes or lesions noted Neuro General: patient alert, patient awake, patient oriented x3 and tone normal Extrem General: no calf tenderness and no edema Psych Appearance: grossly normal Mental Status: mental status grossly normal Mood: anxious mood Affect: anxious affect Attitude: cooperative Thought Content: normal Insight: insight good Judgment: judgment good Course Vital Signs Vital signs: Vital Signs Temperature 36.5 C 03/09/20 09:46 Pulse 92 H 03/09/20 09:46 Respiratory Rate 25 H 03/09/20 09:46 Blood Pressure 124/83 03/09/20 09:46 Pulse Oximetry 100 03/09/20 09:46 Temperature 36.5 C 03/09/20 09:46 Temperature Source Skin 03/09/20 09:46 Pulse 82 03/09/20 11:30 Pulse 66 03/09/20 11:55 Respiratory Rate 17 03/09/20 11:55 Respiratory Effort Non-Labored 03/09/20 10:07 Respiratory Depth Normal 03/09/20 10:07 Respiratory Pattern Normal 03/09/20 10:07 Blood Pressure 121/91 H 03/09/20 11:30 Blood Pressure Mean 98 03/09/20 11:30 Blood Pressure Position Supine 03/09/20 09:46 Pulse Oximetry 99 03/09/20 11:55 Pain Level 2 03/09/20 09:46 Lab/Test Results Lab/Test Results: Laboratory Tests Range/Units 03/09/20 03/09/20 03/09/20 09:50 09:50 09:50 WBC (4.4-10.8) 10^3/uL 7.83 RBC (3.93-5.22) 10^6/uL 5.64 H Hgb (11.2-15.7) g/dL 14.3 Hct (36.0-46.0) % 44.4 MCV (80-95) fL 78.7 L MCH (27.0-33.0) pg 25.4 L MCHC (32.0-36.0) % 32.2 RDW (11.7-14.6) % 13.2 Plt Count (130-400) 10^3/uL 195 MPV (8.0-11.0) fL 11.3 H Immature Gran % 0.3 Neutrophils % 65.8 Lymphocytes % 25.9 Monocytes % 5.7 Eosinophils % 1.7 Basophils % 0.6 Nucleated RBC % % 0 Absolute Neutrophils (1.2-6.7) 10^3/uL 5.15 Absolute Lymphocytes (1.2-3.4) 10^3/uL 2.03 Absolute Monocytes (0.1-0.8) 10^3/uL 0.45 Absolute Eosinophils (0.0-0.7) 10^3/uL 0.13 Absolute Basophils (0.0-0.2) 10^3/uL 0.05 PT (9.3-11.0) sec 10.9 INR (0.9-1.1) 1.1 APTT (21.0-27.5) sec 22.5 Sodium (136-145) mmol/L 141 Potassium (3.5-5.1) mmol/L 3.9 Chloride (98-107) mmol/L 104 Carbon Dioxide (21.0-32.0) mmol/L 25.6 Anion Gap (3-11) mmol/L 11.4 H BUN (7-18) mg/dL 10 Creatinine (0.55-1.02) mg/dL 1.10 H Estimated GFR/1.73 m2 (mL/min/1.73m2) 55.30 Glucose (74-106) mg/dL 87 Calcium (8.5-10.1) mg/dL 9.1 Magnesium (1.8-2.4) mg/dL 2.2 Total Bilirubin (0.2-1.0) mg/dL 0.6 AST (15-37) U/L 22 ALT (14-59) U/L 15 Alkaline Phosphatase (46-116) U/L 50 Troponin I (<0.06) ng/mL < 0.05 Total Protein (6.4-8.2) g/dL 7.6 Albumin (3.4-5.0) g/dL 4.0 TSH (0.36-3.74) uIU/mL Range/Units 03/09/20 09:50 WBC (4.4-10.8) 10^3/uL RBC (3.93-5.22) 10^6/uL Hgb (11.2-15.7) g/dL Hct (36.0-46.0) % MCV (80-95) fL MCH (27.0-33.0) pg MCHC (32.0-36.0) % RDW (11.7-14.6) % Plt Count (130-400) 10^3/uL MPV (8.0-11.0) fL Immature Gran % Neutrophils % Lymphocytes % Monocytes % Eosinophils % Basophils % Nucleated RBC % % Absolute Neutrophils (1.2-6.7) 10^3/uL Absolute Lymphocytes (1.2-3.4) 10^3/uL Absolute Monocytes (0.1-0.8) 10^3/uL Absolute Eosinophils (0.0-0.7) 10^3/uL Absolute Basophils (0.0-0.2) 10^3/uL PT (9.3-11.0) sec INR (0.9-1.1) APTT (21.0-27.5) sec Sodium (136-145) mmol/L Potassium (3.5-5.1) mmol/L Chloride (98-107) mmol/L Carbon Dioxide (21.0-32.0) mmol/L Anion Gap (3-11) mmol/L BUN (7-18) mg/dL Creatinine (0.55-1.02) mg/dL Estimated GFR/1.73 m2 (mL/min/1.73m2) Glucose (74-106) mg/dL Calcium (8.5-10.1) mg/dL Magnesium (1.8-2.4) mg/dL Total Bilirubin (0.2-1.0) mg/dL AST (15-37) U/L ALT (14-59) U/L Alkaline Phosphatase (46-116) U/L Troponin I (<0.06) ng/mL Total Protein (6.4-8.2) g/dL Albumin (3.4-5.0) g/dL TSH (0.36-3.74) uIU/mL 3.08
[2020-03-09 13:21] LABS: Troponin I < 0.05 ng/mL (<0.06)
--- NOTE | 2020-03-09 14:15 | RT.EKG_ITS ---
APPROVED REPORT Exam: Resting ECG Patient Location: E HR:96 bpm ECG Measurements Heart Rate 96 AXIS PA 143 P 57 QRSd 99 QRS 96 QT 381 T 13 QTc 482 Conclusion Sinus rhythm...normal P axis, V-rate 60- 99
--- NOTE | 2020-03-09 15:03 | NUR.NOTE ---
Nursing Note: Referral to PCP for follow up faxed to [facility]. Esha Walker Referral to [facility] for follow up was faxed. Esha Walker
== END 2020-03-09 14:35 | disposition home or self-care (01) ==
PROVIDERS: Emergency Provider Student in an Organized Health Care Education/Training Program; PCP Nurse Practitioner Family
DX: I48.0 Paroxysmal atrial fibrillation (principal); F41.9 Anxiety disorder, unspecified; R07.9 Chest pain, unspecified
CPT/HCPCS: 36415; 71275; 80053; 93005; 96374; 99284; 83735; 84443; 84484; 85025; 85610; 85730; 93010; 99285; J2060; J3490

== ENCOUNTER 2020-03-24 08:47 | Outpatient (CLI) | payer BC, SELFPAY | END 2020-03-24 09:07 | PROVIDERS: PCP Nurse Practitioner Family; Visit Provider Internal Medicine Cardiovascular Disease | CPT/HCPCS: 93270 ==

== ENCOUNTER 2020-03-27 01:51 | Outpatient (CLI) | payer BC, SELFPAY ==
--- NOTE | 2020-03-27 14:00 | ETT_ITS ---
APPROVED REPORT Exam: Exercise Treadmill Patient Location: Out-Patient Room/Bed: Stress Nurse: Dorota Parekh RN BMI: 27.89 Baseline Rhythm: Sinus Rhythm Indications: Paroxysmal atrial fibrillation and palpitations. Medical History Medical History: Paroxysmal atrial fibrillation Cardiac Medications: Metoprolol, Aspirin. Allergies: No known drug allergies Cardiac Risk Factors: None. Previous Cardiac Procedures: None. Pretest Chest Pain Characteristics: None. Exercise History: Sedentary Physical Disabilities: None Lung Sounds: Clear to auscultation Heart Sounds: Regular Stress Test Details Test: Exercise stress testing was performed using a Donis protocol. Rest Stress HR Resting HR Supine: 74 bpm Max Heart Rate (APMHR): 181 bpm Resting HR Standin bpm Target HR (85% APMHR): 153 bpm Max HR Achieved: 179 bpm % of APMHR: 98 Recovery HR: 98 bpm HR response to stress: Accelerated HR response to stress BP Resting BP Supine: 116/68 mmHg Resting BP Standin/70 mmHg Max BP: 134/70 mmHg Recovery BP: 120/68 mmHg BP response to stress: Normal blood pressure response to stress. ECG Resting ECG: Sinus Rhythm Ectopy: None. Stress ECG: Sinus Tachycardia ST Change: No significant ST segment changes noted. Arrhythmia: None. Recovery ECG: Sinus Rhythm Recovery ST Change: No significant ST segment changes noted. Recovery Arrhythmia: None. Clinical Reason for Termination: Fatigue, Dyspnea Stress Symptoms: Dyspnea Exercise duration: 8 min50 sec Highest Stage Reached: Stage 3: 3.4 mph at 14% grade. Exercise capacity: 10.16 METs Stress ECG Conclusion 1. The resting electrocardiogram was normal 2. Patient exercised on the Donis protocol and completed a workload of 10.16 METs 3. Accelerated heart rate response to exercise. Normal blood pressure response to exercise. The pat ient achieved 98% of predicted heart rate for age 4. The patient experienced no chest pain during exercise. Electrocardiographically there was no evid ence of myocardial ischemia 5. There were no dysrhythmias. Specifically there was no atrial fibrillation seen 6. Hughes treadmill score is 8, low risk Stress Test Summary STAGE Time (mins) Speed (mph) Grade (%) HR BP SYMPTOMS METS Supine 74 116/68 Standing 107 112/70 1 3 1.7 10 150 120/66 4.6 2 6 2.5 12 164 124/68 7 3 9 3.4 14 130/66 10.2 1 min recovery 152 134/70 3 min recovery 103 128/64 6 min recovery 98 120/68
--- NOTE | 2020-05-11 09:56 | W.CARDEVENT ---
Date of service: 05/11/20 Time of Service: 09:56 Cardiac Event Recorder Referring Provider:: faisal Indications:: Afb Cardiac Event Note: This is a 30-day event recorder ordered for the indication of atrial fibrillation. ?The patient was normal sinus rhythm for the majority of the recording with an average heart rate of 90 bpm. ?There were 10 automatic triggered events which were associated with sinus rhythm and sinus arrhythmia. ?There were 9 patient triggered events which were associated with sinus arrhythmia and sinus tachycardia. ?While there was sinus arrhythmia documented, there were no recordings of clear atrial fibrillation during this period of time.
== END 2020-03-27 02:11 ==
PROVIDERS: PCP Nurse Practitioner Family; Visit Provider Internal Medicine Cardiovascular Disease
DX: I48.0 Paroxysmal atrial fibrillation (principal); R00.2 Palpitations
CPT/HCPCS: 93017

== ENCOUNTER 2021-01-25 00:30 | Outpatient (CLI) | payer BC, SELFPAY ==
--- NOTE | 2021-01-25 | DI.MAMMO_ITS ---
Exam(s) MAMMO SCREENING EXAM: MAMMO SCREENING CLINICAL HISTORY: SCREENING, HEALTH MAINTENANCE,Z00.8. TECHNIQUE: Bilateral full field digital CC and MLO mammographic images were obtained with 3D tomosyn thesis and utilizing computer aided detection (CAD). COMPARISON: Prior outside mammogram of September 2017 FINDINGS: Fibroglandular tissue is moderately dense, this decreasing the sensitivity of the mammogram for findi ng hidden underlying lesions. There are no CAD designations. No new significant radiograph findings in the right breast. In the left breast there is an asymmetric density possible nodule located 4 cm in from the nipple on the CC view. Spot compression view recommended There is no significant architectural distortion nor skin thickening-retraction. No malignant-appearing microcalcification groups. IMPRESSION: No radiographic evidence of malignancy in the right breast. Left breast asymmetric density-possible nodule. Spot compression view and possible ultrasound recomm ended. BI-RADS Category 0 - Assessment Incomplete: Need additional imaging evaluation Breast Density - Category C - Heterogeneously dense Breast density Category C or D implies that the patient has dense breast tissue. Dense breast tissue can make it harder to find cancer on a mammogram. Dense breast tissue is also associated with an incr eased risk of breast cancer. This information about the result of the mammogram report was provided to the patient to raise their awareness. Use this report when you speak with the patient about their risks for breast cancer, which includes their family history. At that time, you may recommend additional screening tests (Ultrasoun d or MRI) as these tests may add significant information. A negative radiographic report should not delay biopsy if a dominant or clinically suspicious mass is present. Up to ten percent of cancers are not identified on mammography. A negative report may reinforce clinical impression. Adenosis and dense breasts may obscure an underlying neoplasm. False positive reports average 6 to 10%. Patient will receive a letter notifying them of these results.
== END 2021-01-25 00:50 ==
PROVIDERS: PCP Nurse Practitioner Family; Visit Provider Physician Assistant
DX: Z12.31 Encounter for screening mammogram for malignant neoplasm of breast (principal); Z00.8 Encounter for other general examination; R92.8 Other abnormal and inconclusive findings on diagnostic imaging of breast
CPT/HCPCS: 77063; 77067

== ENCOUNTER → 2021-02-09 03:44 | Outpatient (CLI) | payer BC, SELFPAY ==
--- NOTE | 2021-02-09 | DI.MAMMO_ITS ---
Exam(s) MG MAMMO SCREEN CALL BACK UNI US BREAST LT LIMITED EXAM: US BREAST LT LIMITED CLINICAL HISTORY: F/U MAMMO , LT BREAST ASYMMETRIC TECHNIQUE: Ultrasound performed using standard protocol. COMPARISON: US US ECHOCARDIOGRAM from 04/05/2019 FINDINGS: Additional mammographic views of the left breast and left breast ultrasound are interpreted in conjun ction. These examinations were obtained to evaluate questionable area of nodularity of the left cris st seen on recent mammogram. Spot compression view of the left breast in CC projection shows decreased prominence questionable nod ularity on mammographic view obtained on January 25. Comparison with prior examination of September 21 shows no significant interval change from examination of 2017 to the current examination of 2020. Breast ultrasound shows a 4 millimeter cyst with some internal echoes in the 8 o'clock position 5 cm from nipple. No solid mass identified in the breast. IMPRESSION: No specific evidence of malignancy at this time. Follow-up unilateral left breast mammogram recommen ded in 6 months. BI-RADS Cat 3 - 6 month - Probably Benign Finding: Recommend follow-up imaging in 6 months Breast Density - Category C - Heterogeneously dense DATA REPOSITORY:
== END ==
PROVIDERS: PCP Nurse Practitioner Family; Visit Provider Physician Assistant
DX: R92.8 Other abnormal and inconclusive findings on diagnostic imaging of breast (principal); N60.02 Solitary cyst of left breast
CPT/HCPCS: 76642; 77063; 77067

== ENCOUNTER 2021-08-06 01:55 | Outpatient (CLI) | payer BC, SELFPAY ==
--- NOTE | 2021-08-06 14:30 | DI.MAMMO_ITS ---
Exam(s) MAMMO DIAGNOSTIC UNI EXAM: MAMMO DIAGNOSTIC UNI -LEFT CLINICAL HISTORY: 6-MO F/U ABNL LT MAMMO, R92.8. TECHNIQUE: Left breast CC and MLO mammographic images were obtained with 3D tomosynthesis technique and utilizing computer aided detection (CAD). Also performed additional spot compression view in the CC plane with 3D tomosynthesis. COMPARISON: Prior mammograms were reviewed, the most recent being February 2021. Ultrasound performe d 02/09/2021 was also reviewed. FINDINGS: Previously described finding on left CC view is unchanged from 01/25/2021. Suggestion of other benig n-appearing nodules lateral of center in the left breast also noted. We performed additional spot co mpression 3D cc views and all the findings appear to dissipate. There also no malignant-appearing microcalcification groups in the left breast. No new architectural distortion or skin thickening-traction IMPRESSION: Benign findings. No radiographic evidence of malignancy in the in the left breast. Appropriate follow-up is to keep this patient on a yearly mammogram schedule, this implying the next bilateral mammogram would be in 6 months, with earlier imaging if a self detected breast change is no kris.. The patient was informed of the findings and follow-up recommendations prior to leaving the [facility] today. BI-RADS Category 3 - 6 month - Probably Benign Finding: Recommend follow-up mammography in 6 months Breast Density - Category C - Heterogeneously dense Breast density Category C or D implies that the patient has dense breast tissue. Dense breast tissue can make it harder to find cancer on a mammogram. Dense breast tissue is also associated with an incr eased risk of breast cancer. This information about the result of the mammogram report was provided to the patient to raise their awareness. Use this report when you speak with the patient about their risks for breast cancer, which includes their family history. At that time, you may recommend additional screening tests (Ultrasoun d or MRI) as these tests may add significant information. A negative radiographic report should not delay biopsy if a dominant or clinically suspicious mass is present. Up to ten percent of cancers are not identified on mammography. A negative report may reinforce clinical impression. Adenosis and dense breasts may obscure an underlying neoplasm. False positive reports average 6 to 10%. Patient will receive a letter notifying them of these results.
== END 2021-08-06 02:15 ==
PROVIDERS: PCP Nurse Practitioner Family; Visit Provider Pediatrics
DX: R92.8 Other abnormal and inconclusive findings on diagnostic imaging of breast (principal)
CPT/HCPCS: 77061; 77065; G0279

== ENCOUNTER 2021-09-05 14:58 | Emergency (ER) | payer BC, SELFPAY ==
[2021-09-05] VITALS (116 sets, daily range): BP systolic 94–128; BP diastolic 46–67; PULSE 58–79; RESP 9–23; TEMP 36.9; O2SAT 96–100
--- NOTE | 2021-09-05 15:00 | RT.EKG_ITS ---
APPROVED REPORT Exam: Resting ECG Reason for Exam: chest pain Patient Location: E HR:75 bpm ECG Measurements Heart Rate 75 AXIS PA 146 P 7 QRSd 100 QRS 63 QT 400 T 8 QTc 447 Conclusion Sinus arrhythmia...V-rate 61- 92, variation>10% sinus rhythm, normal axis, normal intervals, t wave inversion III and V3 unchanged from prior
--- NOTE | 2021-09-05 15:40 | ED.GENADUL_ITS ---
Discharge Plan Disposition Patient Disposition: HOME Condition: Improving Discharge Details Chief Complaint: Chest Pain Clinical Impression: Chest pain Primary Care Provider: Lynn Andino ED Provider: Kevin Tapia Home Meds and New Rx's Prescriptions: No Action metoprolol succinate 50 mg tablet extended release 24 hr 50 mg PO DAILY 0RF zolpidem [Ambien] 10 mg Tablet 10 mg PO PRN [id number] Discharge Instructions Instructions: Chest Pain (ED) Additional Instructions: Please follow-up with your strategic intelligence officer and primary care physician in the next week. Please return to the emergency department for any worsening symptoms such as chest pain shortness of breath passing out or other abnormal symptoms. Take your medications as prescribed. Medical Decision Making 40-year-old female history of paroxysmal A. fib on metoprolol, presents with intermittent brief anterior chest pain over the last week, anterior chest rating to neck bilateral shoulders and bilateral arms pressure-like in nature, nonexertional, self resolving, no pleuritic component, patient is low risk heart score, is PERC negative, lungs are clear bilaterally, no peripheral edema, resting comfortably normal sinus rhythm with sinus arrhythmia, nonischemic, likely musculoskeletal tension versus pleurisy versus anxiety versus less likely ACS or PE versus unlikely aortic pathology or pneumothorax. Given age and low risk factors likelihood of inflammatory/musculoskeletal issue will dose Toradol we will hold aspirin at this time, will obtain basic labs to assess troponin electrolytes, will obtain chest x-ray, patient resting comfortably close reassessment of symptomatology will encourage follow-up with cardiology however low suspicion that this patient will need admission. Screen for mental health issues, denies abuse or undue stress at home/work. 17: 27 patient is asymptomatic resting comfortably hemodynamically stable labs and imaging unremarkable. Likely musculoskeletal chest pain such as costochondritis versus mild pleurisy. Low suspicion for ACS or PE. Home care instructions and strict return cautions given. Patient will see her strategic intelligence officer in the coming weeks. HPI General Date/Time Provider Initiated Documentation: 09/05/21 14:59 . HPI Narrative: 40-year-old female history of paroxysmal A. fib on metoprolol, presents with intermittent chest pain over the last week, anterior in nature radiating to neck bilateral shoulders and bilateral arms, slightly pressure-like brief lasting less than a minute, no nausea no vomiting no shortness of breath no leg swelling or pain, no family history or personal history of thromboembolic disease, no exogenous estrogen use or control, no recent travel or surgeries, resolved currently Related Data Home Medications Medication Instructions Recorded Confirmed zolpidem 10 mg tablet (Ambien) 10 mg PO PRN PRN 01/22/19 09/05/21 metoprolol succinate 50 mg 50 mg PO DAILY 12/15/20 09/05/21 tablet,extended release 24 hr Allergies Allergy/AdvReac Type Severity Reaction Status Date / Time No Known Allergies Allergy Verified 09/05/21 15:07 General Stated Complaint: Chest Pain DALTON: 2 Review of Systems Narrative: Review of Systems Constitutional: negative Eyes: negative ENT: negative Cardiovascular: Chest pain Respiratory: negative Gastrointestinal: negative : negative Musculoskeletal: negative Skin: negative Neurologic: negative Psych: negative PFSH All Active Problems (Updated 09/05/21 @ 17:28 by Kevin Tapia MD) Chest pain (Acute) Paroxysmal atrial fibrillation (Acute) Family History Father Diabetes Social History Smoking/Tobacco Use Status: Current every day Tobacco Type: e-cigarettes Tobacco: How many years used: 10 Smoking risk assessment performed?: Yes Alcohol Intake: current Alcohol Intake frequency: a few times a month Alcohol type: beer, wine and hard liquor Drug use: Never Substance use type: marijuana What type of physical activity do you participate in: none Do you feel safe at home: Yes Do you feel safe in your relationship?: Yes Exam Narrative Exam Narrative: Physical Examination General: alert, awake, cooperative, resting comfortably, no acute distress HEENT: normocephalic, atraumatic; PERRL, EOM intact, conjunctiva normal; no nasal discharge; moist mucous membranes, oral and pharyngeal mucosa normal, tolerating secretions Neck: supple, trachea midline; full ROM Chest: normal to inspection Respiratory: normal respiratory effort, speaking in full sentences, clear to auscultation, no wheezing, rales or rhonchi Cardiac: regular rate, regular rhythm, S1S2 intact, no murmurs rubs or gallops GI: abdomen soft, non-tender, non-distended; no palpable mass or hepatosplenomegaly Skin: no lesions, rashes or trauma appreciated Neuro: AAOx3, normal speech, moving all extremities Extremities: No peripheral edema Psych: Appropriate mood and affect Course Vital Signs Vital signs: Vital Signs Temperature 36.9 C 09/05/21 15:02 Pulse 76 09/05/21 15:02 Respiratory Rate 13 09/05/21 15:02 Blood Pressure 128/64 09/05/21 15:02 Pulse Oximetry 100 09/05/21 15:02 Temperature 36.9 C 09/05/21 15:02 Temperature Source Temporal Artery Scan 09/05/21 15:02 Pulse 76 09/05/21 15:02 Respiratory Rate 13 09/05/21 15:02 Respiratory Effort 09/05/21 15:02 Blood Pressure 128/64 09/05/21 15:02 Blood Pressure Position Supine 09/05/21 15:02 Pulse Oximetry 100 09/05/21 15:02 Pain Level 0 09/05/21 15:02
[2021-09-05 15:54] LABS: Abs Immature Grans 0.02 10^3/uL (0.0-0.06); Absolute Basophil Count 0.04 10^3/uL (0.0-0.2); Absolute Eosinophil Count 0.13 10^3/uL (0.0-0.7); Absolute Lymphocyte Count 2.15 10^3/uL (1.2-3.4); Absolute Monocyte Count 0.55 10^3/uL (0.1-0.8); Basophils % 0.5; Eosinophils % 1.8; HGB 13.8 g/dL (11.2-15.7); Immature Grans % 0.3; Lymphocytes % 29.1; MCH 25.7 pg (27.0-33.0); MCHC 32.1 % (32.0-36.0); MCV 80 fL (80-95); MPV 10.3 fL (8.0-11.0); Monocytes % 7.4; Neutrophils % 60.9; Platelet Count 205 10^3/uL (130-400); RBC 5.38 10^6/uL (3.93-5.22); RDW 13.1 % (11.7-14.6); RDW-SD 37.2 fL; WBC 7.39 10^3/uL (4.4-10.8)
[2021-09-05] MEDS: Mylanta Suspension 30 ML CUP PO (15:58)
[2021-09-05] MEDS: Lidocaine 2% Viscous 15 ML CUP PO (15:59)
[2021-09-05] MEDS: Ketorolac 15 MG/ML VIAL IVP (15:59)
[2021-09-05 16:15] LABS: ALT 18 U/L (14-59); AST 14 U/L (15-37); Albumin 3.8 g/dL (3.4-5.0); Alkaline Phosphatase 59 U/L (46-116); Anion Gap 6.6 mmol/L (3-11); BUN 15 mg/dL (7-18); Bilirubin, Total 0.3 mg/dL (0.2-1.0); CO2 27.4 mmol/L (21.0-32.0); CREATININE 0.9 mg/dL (0.55-1.02); Calcium 8.5 mg/dL (8.5-10.1); Chloride 104 mmol/L (98-107); Glucose 87 mg/dL (74-106); Potassium 3.8 mmol/L (3.5-5.1); Sodium 138 mmol/L (136-145); Total Protein 7.4 g/dL (6.4-8.2); Troponin I < 50 ng/L (<or=60)
--- NOTE | 2021-09-05 16:37 | DI.RAD_ITS ---
Exam(s) XR PORTABLE CHEST AP EXAM: XR PORTABLE CHEST AP CLINICAL HISTORY: chest pain TECHNIQUE: 2D digital imaging was performed. COMPARISON: No exams were available for comparison FINDINGS: LUNGS: Clear. No pleural abnormality seen. HEART: Normal. AORTA: Normal. BONES: Unremarkable for age. Soft tissues: Unremarkable. IMPRESSION: No acute findings. DATA REPOSITORY: RADIATION DOSE DELIVERED:
== END 2021-09-05 17:38 | disposition home or self-care (01) ==
PROVIDERS: Emergency Provider Emergency Medicine; PCP Physician Assistant
DX: R07.9 Chest pain, unspecified (principal)
CPT/HCPCS: 80053; 93005; 96374; 99284; 71045; 84484; 85025; 93010; J1885

== ENCOUNTER 2021-09-25 17:39 | Outpatient (REF) | payer BC, SELFPAY ==
--- NOTE | 2021-09-25 16:15 | PAPFT_PTH ---
PATIENT: Sherrill Ray LOC: [facility]#:[id number] AGE/SX: 40/F ROOM: RE09/25/[address]: Lynn Anidno : 1980 BED: DIS: 09/25/2021 SPEC #: [id number] RECD: 09/25/21 18:32 STATUS: SHAR REGrzegorz #: [id number] ANN MARIE: 09/25/21 16:[address]: Lynn Andino DEPT: [facility] Cytology RECD BY: Thi Stanley Tissues: 1 - CX/ENDOCX FOR PAP SMEARS Procedures: PAP THIN PREP/UVM Screening HPV DNA PROBE Comments: [id number]
== END 2021-09-25 17:40 | disposition home or self-care (01) ==
LOC: NCHCN 17:39
PROVIDERS: PCP Physician Assistant; Visit Provider Physician Assistant
DX: Z12.4 Encounter for screening for malignant neoplasm of cervix (principal); Z01.419 Encounter for gynecological examination (general) (routine) without abnormal findings; Z00.00 Encounter for general adult medical examination without abnormal findings
CPT/HCPCS: 88142; 87624

== ENCOUNTER 2022-04-02 02:22 | Outpatient (CLI) | payer BC, SELFPAY ==
--- NOTE | 2022-04-02 | DI.MAMMO_ITS ---
Exam(s) MAMMO DIAGNOSTIC BI EXAM: MAMMO DIAGNOSTIC BI CLINICAL HISTORY: ABNL LEFT MAMMO R92.8, 6 MO FU. TECHNIQUE: Craniocaudal and mediolateral oblique Full Field Digital Mammography views of the bilater al breast with Computer Aided Diagnosis followed by Tomosynthesis. COMPARISON: Comparison is made with prior examinations. FINDINGS: Mammography/Tomosynthesis: Masses/Architectural Distortion: None seen. Microcalcifictions: No suspicious pleomorphic-type are seen. Skin Thickening/Nipple Retraction: None. IMPRESSION: 1. No evidence of malignancy is noted. 2. Unless there is more urgent need, follow-up screening mammography is recommended, as per [place] guidelines. 3. The findings were discussed with the patient on the date of the examination. BI-RADS Category 1 - Negative Breast Density - Category C - Heterogeneously dense Breast density Category C or D implies that the patient has dense breast tissue. Dense breast tissue can make it harder to find cancer on a mammogram. Dense breast tissue is also associated with an incr eased risk of breast cancer. This information about the result of the mammogram report was provided to the patient to raise their awareness. Use this report when you speak with the patient about their risks for breast cancer, which includes their family history. At that time, you may recommend additional screening tests (Ultrasoun d or MRI) as these tests may add significant information. A negative radiographic report should not delay biopsy if a dominant or clinically suspicious mass is present. Up to ten percent of cancers are not identified on mammography. A negative report may reinforce clinical impression. Adenosis and dense breasts may obscure an underlying neoplasm. False positive reports average 6 to 10%. Patient will receive a letter notifying them of these results.
== END 2022-04-02 02:42 ==
PROVIDERS: PCP Physician Assistant; Visit Provider Physician Assistant
DX: R92.8 Other abnormal and inconclusive findings on diagnostic imaging of breast (principal)
CPT/HCPCS: 77062; 77066; G0279

== ENCOUNTER → 2023-04-09 01:29 | Outpatient (CLI) | payer BC, SELFPAY ==
--- NOTE | 2023-04-09 | DI.MAMMO_ITS ---
Exam(s) MAMMO SCREENING EXAM: MAMMO SCREENING CLINICAL HISTORY: SCREENING MAMMO Z12.31 FAM HX BREAST CANCER Z80.3. TECHNIQUE: Bilateral full field digital CC and MLO mammographic images were obtained with 3D tomosyn thesis and utilizing computer aided detection (CAD). COMPARISON: Prior mammograms were reviewed. FINDINGS: The fibroglandular tissue pattern is again noted to be moderately dense, this somewhat decreasing the sensitivity of the mammogram for finding hidden underlying lesions. There are nodular densities noted bilaterally... In the medial aspect of the right breast there is a well-defined slightly lobulated noncalcified nodu le seen on the CC view, measuring 5 x 4 mm, located 9 cm in from the nipple, medially. Also in the right breast on the CC view there is a suggestion of a nodular density measuring approxim ately 10 x 10 mm, located approximately 5 cm in from the nipple. On the right breast MLO view there is a well-defined nodule located 9 cm in from the nipple measuring approximately 5 x 4 mm and corresp onding to the nodule in the medial aspect seen on the CC view. Posteriorly in the opposite-left breast on the 3D MLO view there is a suggestion of a nodular density measuring 6 x 4 mm, located 10 cm in from the nipple on the MLO view. There are no malignant-appearing microcalcification groups in either breast There is no significant architectural distortion nor skin thickening-retraction. IMPRESSION: Bilateral multiple nodular densities which are more evident than on prior mammograms. Bilateral spot compression views and bilateral breast ultrasound recommended. BI-RADS Category 0 - Assessment Incomplete: Need additional imaging evaluation Breast Density - Category C - Heterogeneously dense Breast density Category C or D implies that the patient has dense breast tissue. Dense breast tissue can make it harder to find cancer on a mammogram. Dense breast tissue is also associated with an incr eased risk of breast cancer. This information about the result of the mammogram report was provided to the patient to raise their awareness. Use this report when you speak with the patient about their risks for breast cancer, which includes their family history. At that time, you may recommend additional screening tests (Ultrasoun d or MRI) as these tests may add significant information. A negative radiographic report should not delay biopsy if a dominant or clinically suspicious mass is present. Up to ten percent of cancers are not identified on mammography. A negative report may reinforce clinical impression. Adenosis and dense breasts may obscure an underlying neoplasm. False positive reports average 6 to 10%. Patient will receive a letter notifying them of these results.
== END ==
PROVIDERS: PCP Physician Assistant; Visit Provider Physician Assistant
DX: Z12.31 Encounter for screening mammogram for malignant neoplasm of breast (principal); Z80.3 Family history of malignant neoplasm of breast; R92.8 Other abnormal and inconclusive findings on diagnostic imaging of breast
CPT/HCPCS: 77063; 77067

== ENCOUNTER → 2023-04-15 01:24 | Outpatient (CLI) | payer BC, SELFPAY ==
--- NOTE | 2023-04-15 | DI.MAMMO_ITS ---
Exam(s) US BREAST LT COMPLETE US BREAST RT LIMITED MG MAMMO SCREEN CALL BACK BI EXAM: MG MAMMO SCREEN CALL BACK BI and U/S breast RT limited and U/S breast LT complete CLINICAL HISTORY: MULTIPLE NODULAR DENSITIES BILAT R92.8 ABNL MAMMO. TECHNIQUE: Craniocaudal and mediolateral oblique Full Field Digital Mammography views of the bilater al breast with Computer Aided Diagnosis followed by Tomosynthesis and bilateral breast ultrasound. COMPARISON: Comparison is made with prior examinations. FINDINGS: Mammography/Tomosynthesis: Masses/Architectural Distortion: The nodule in the medial right breast persists. It is seen in the p osterior and inferior aspect of the right breast on the MLO view. The area of breast asymmetry in th e medial right breast does not persist on the additional views. The area of nodularity in the textiles and clothing teacher ior left breast on the MLO view is still faintly visualized on the additional views. There are no ar eas of architectural distortion Microcalcifictions: No suspicious pleomorphic-type are seen. Skin Thickening/Nipple Retraction: None. Limited right breast US: Echotexture: Normal appearance of the glandular tissue. Shadowing: No suspicious foci. Cyst: There is a 0.6 cm cyst at the 3 o'clock position of the right breast 6 cm from the nipple. Thi s may correspond to the mammographic abnormality. There are adjacent simple cysts at the 6 o'clock p osition 5 and 6 cm from the nipple. Solid lesions: There is a well-circumscribed 4 mm hypoechoic nodule at the 2 o'clock position of the right breast 4 cm from the nipple. Ductal dilation: None. Complete left breast US: Echotexture: Normal appearance of the glandular tissue. Shadowing: No suspicious foci. Cyst: A collection of microcysts is seen at the 4 o'clock position of the left breast 6 cm from the n ipple. There are cysts seen at the 5 and 6 o'clock positions of the left breast. Solid lesions: There is a hypoechoic nodule measuring 0.8 cm at the 2 o'clock position of the left br east 1 cm from the nipple. Ductal dilation: There are findings which appear to be ducts at the 2 o'clock position in the retroar eolar region of the left breast. IMPRESSION: 1. No definite evidence for malignancy is seen at this time. 2. A six-month follow-up bilateral breast ultrasound is requested for re-evaluation. 3. The findings were discussed with the patient on the date of the examination. BI-RADS Category 3 - 6 month - Probably Benign Finding: Recommend follow-up imaging in 6 months Breast Density - Category C - Heterogeneously dense Breast density Category C or D implies that the patient has dense breast tissue. Dense breast tissue can make it harder to find cancer on a mammogram. Dense breast tissue is also associated with an incr eased risk of breast cancer. This information about the result of the mammogram report was provided to the patient to raise their awareness. Use this report when you speak with the patient about their risks for breast cancer, which includes their family history. At that time, you may recommend additional screening tests (Ultrasoun d or MRI) as these tests may add significant information. A negative radiographic report should not delay biopsy if a dominant or clinically suspicious mass is present. Up to ten percent of cancers are not identified on mammography. A negative report may reinforce clinical impression. Adenosis and dense breasts may obscure an underlying neoplasm. False positive reports average 6 to 10%. Patient will receive a letter notifying them of these results.
== END ==
LOC: DI 01:24
PROVIDERS: PCP Physician Assistant; Visit Provider Physician Assistant
DX: Z12.31 Encounter for screening mammogram for malignant neoplasm of breast (principal); N60.01 Solitary cyst of right breast
CPT/HCPCS: 76642; 77063; 77067

== ENCOUNTER 2023-06-23 09:49 | Outpatient (REF) | payer BC, SELFPAY ==
[2023-06-23 19:47] LABS: Hemoglobin A1C 5.1 % (<5.7)
[2023-06-23 20:07] LABS: ALT 16 U/L (14-59); AST 13 U/L (15-37); Albumin 3.1 g/dL (3.4-5.0); Alkaline Phosphatase 56 U/L (46-116); Anion Gap 7.7 mmol/L (3-11); BUN 15 mg/dL (7-18); Bilirubin, Total 0.3 mg/dL (0.2-1.0); CO2 25.3 mmol/L (21.0-32.0); CREATININE 0.9 mg/dL (0.55-1.02); Calcium 8.7 mg/dL (8.5-10.1); Calculated LDL 116 mg/dL (<100); Chloride 107 mmol/L (98-107); Cholesterol 175 mg/dL (<200); Estimated GFR 81.86 (mL/min/1.73m2); Glucose 98 mg/dL (74-106); HDL Cholesterol 42 mg/dL (40-60); Potassium 4.5 mmol/L (3.5-5.1); Sodium 140 mmol/L (136-145); Total Protein 6.5 g/dL (6.4-8.2); Triglyceride 88 mg/dL (<150)
[2023-06-24 18:38] LABS: HIV-1/2 Ag & Ab Screen Negative (Negative)
[2023-06-24 18:40] LABS: Hepatitis C Ab w Rflx HCV PCR Negative (Negative)
== END 2023-06-23 09:50 | disposition home or self-care (01) ==
LOC: NCHCN 09:49
PROVIDERS: Referring Provider Physician Assistant; Visit Provider Physician Assistant
DX: E78.5 Hyperlipidemia, unspecified (principal); Z00.00 Encounter for general adult medical examination without abnormal findings; Z13.1 Encounter for screening for diabetes mellitus
CPT/HCPCS: 80053; 80061; 86803; 87389; 83036

== ENCOUNTER 2024-05-28 00:45 | Outpatient (CLI) | payer BC, SELFPAY ==
--- NOTE | 2024-05-28 15:13 | DI.MAMMO_ITS ---
Exam(s) MAMMO SCREENING EXAM: MAMMO SCREENING CLINICAL HISTORY: SCREENING, H/O ABNL MAMMO FOR BILAT BREAST MASSES. TECHNIQUE: Bilateral full field digital CC and MLO mammographic images were obtained with 3D tomosyn thesis and utilizing computer aided detection (CAD). COMPARISON: Prior mammograms were reviewed. FINDINGS: Fibroglandular tissue pattern is again noted be moderately dense this somewhat decreasing the sensiti vity of the mammogram for finding hidden underlying lesions. In the medial aspect of the right breast the previously described well-defined slightly lobulated non calcified nodule measuring 5 x 4 mm and located 9 cm in from the nipple appears unchanged.. This was shown to be a benign microcyst on ultrasound examination of 04/15/2023. No other mammographic findi ngs in right breast on today's study. No new left breast mammographic findings. Previously described nodule on the MLO view is less eviden t on the present study. Prior ultrasound revealed a left breast cyst. There are no new spiculated masses nor new malignant-appearing microcalcification groups in either br east. There is no significant architectural distortion nor skin thickening-retraction. IMPRESSION: Moderate dense fibroglandular tissue. Benign findings. No radiographic evidence of malignancy. BI-RADS Category 2 - Benign Findings Breast Density - Category C - Heterogeneously dense Breast density Category C or D implies that the patient has dense breast tissue. Dense breast tissue can make it harder to find cancer on a mammogram. Dense breast tissue is also associated with an incr eased risk of breast cancer. This information about the result of the mammogram report was provided to the patient to raise their awareness. Use this report when you speak with the patient about their risks for breast cancer, which includes their family history. At that time, you may recommend additional screening tests (Ultrasoun d or MRI) as these tests may add significant information. A negative radiographic report should not delay biopsy if a dominant or clinically suspicious mass is present. Up to ten percent of cancers are not identified on mammography. A negative report may reinforce clinical impression. Adenosis and dense breasts may obscure an underlying neoplasm. False positive reports average 6 to 10%. Patient will receive a letter notifying them of these results.
== END 2024-05-28 01:05 ==
PROVIDERS: PCP Physician Assistant; Visit Provider Physician Assistant
DX: Z12.31 Encounter for screening mammogram for malignant neoplasm of breast (principal); R92.8 Other abnormal and inconclusive findings on diagnostic imaging of breast; R92.333 Mammographic heterogeneous density, bilateral breasts; D24.2 Benign neoplasm of left breast
CPT/HCPCS: 77063; 77067